=== PATIENT | male | born 1970 | race African-American/Black ===

== ENCOUNTER 2020-01-14 09:37 | Emergency (ER) | payer SELFPAY ==
[~2020-01-14] VITALS: Ht 175.3 cm; Wt 93.0 kg
[2020-01-14 10:05] VITALS: BP 132/88
[2020-01-14] MEDS ORDERED: Bactrim-DS 1 tab ORAL ONE (10:30)
[2020-01-14] MEDS ORDERED: Lidocaine 1% MPF 10mg/ml 5ml INJ ONE (10:30)
[2020-01-14] MEDS ORDERED: LET 3ml Soln TOPIC ONE ×2 (10:30→13:30)
[2020-01-14] MEDS ORDERED: Tetanus/Diptheria/Pertussis IM ONE (11:15)
[2020-01-14 11:21] LABS: BASOPHILS % (AUTO) 1.6 % (0.0-2.0); HEMATOCRIT 46.7 % (42.0-52.0); HEMOGLOBIN 15.7 G/DL (14.2-18.0); MEAN CORPUSCULAR VOLUME 96 FL (80-99); MONOCYTES % (AUTO) 5.5 % (1.0-10.0); NEUTROPHILS % (AUTO) 51.9 % (45.0-75.0); PLATELET COUNT 212 K/UL (150-450); RED BLOOD COUNT 4.85 M/UL (4.70-6.10); RED CELL DISTRIBUTION WIDTH 11.1 % (11.6-14.8); WHITE BLOOD COUNT 5.9 K/UL (4.8-10.8)
[2020-01-14 11:34] LABS: ANION GAP 7 mmol/L (5-15); BLOOD UREA NITROGEN 10 mg/dL (7-18); CARBON DIOXIDE 27 MMOL/L (21-32); CHLORIDE 106 MMOL/L (98-107); CREATININE 1.1 MG/DL (0.55-1.30); POTASSIUM 5.1 MMOL/L (3.5-5.1); SODIUM 140 MMOL/L (136-145)
[2020-01-14 11:38] LABS: ALANINE AMINOTRANSFERASE 42 U/L (12-78); ALKALINE PHOSPHATASE 67 U/L (46-116); ASPARTATE AMINO TRANSFERASE 45 U/L (15-37); BILIRUBIN,TOTAL 0.5 MG/DL (0.2-1.0)
[2020-01-14 12:02] VITALS: BP 127/82
[2020-01-14 12:22] LABS: ALBUMIN 4.3 G/DL (3.4-5.0); ALBUMIN/GLOBULIN RATIO 1.1 (1.0-2.7)
--- NOTE | 2020-01-14 12:32 | Diagnostic Imaging Report ---
EXAM: X-RAY XRAY Leg Lower Tib Fib 2v R CLINICAL HISTORY: Leg pain. COMPARISON: None FINDINGS: Total of 2 views of the right tibia and fibula were obtained. Alignment is anatomic. In the distal tibia, there is a cortical to subcortical circumscribed sclerotic density suggestive of a nonossifying fibroma noted. In the proximal tibial metadiaphyseal region, there is some endosteal thickening along the medial margin of undetermined etiology. Question history of old trauma. Joint spaces are unremarkable. Surrounding soft tissue is normal. IMPRESSION: NO ACUTE FRACTURE OR MALALIGNMENT. SMALL CORTICAL TO SUBCORTICAL SCLEROTIC DENSITY IN THE DISTAL TIBIA SUGGESTIVE OF A NONOSSIFYING FIBROMA. APPARENT CORTICAL/ENDOSTEAL THICKENING IN THE PROXIMAL TIBIAL METADIAPHYSIS OF UNDETERMINED ETIOLOGY. QUESTION HISTORY OF OLD TRAUMA.
--- NOTE | 2020-01-14 14:40 | Emergency Room Report ---
History of Present Illness General Chief Complaint: Skin Rash/Abscess Source: Patient Present Illness HPI The patient was sent to the emergency department for evaluation of an infection of his right dominguez. He stopped Keflex after 10-day course 2 days ago. At that time the leg was quite swollen and red. The swelling has improved but there is an area of swelling anteriorly. His private physician sent him to the emergency department for possible surgical consultation. He reports that prior labs were normal. The patient is not been working for 2 weeks. He has been keeping his foot elevated as much as possible. He denies pain at this time. There are no recent fevers and chills. The patient reports that several years ago a heavy object hit his anterior leg. This resulted in an infection that was treated with antibiotics at that time. It took quite a while for that problem to resolve. In the interim there have been no infections or problems with the leg. Patient denies calf pain, edema at this time or shortness of breath, chest pain or hemoptysis. The patient does not know when his last tetanus shot was. He believes is greater than 10 years. No fevers, chills, sore throat, palpitations, nausea, vomiting, diarrhea, dysuria, abdominal pain, depression, anxiety, visual changes, dizziness, headache. 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 Patient History Past Medical History: see triage record Social History: Denies: smoking, alcohol use, drug use Social History Narrative cmv driver Reviewed Nursing Documentation: PMH: Agreed; PSxH: Agreed Nursing Documentation-PMH Past Medical History: No Stated History Review of Systems All Other Systems: negative except mentioned in HPI Physical Exam Vital Signs Date Time Temp Pulse Resp B/P (MAP) Pulse Ox O2 Delivery O2 Flow Rate FiO2 01/14/20 10:03 98.2 72 16 135/88 (104) 98 Room Air Sp02 EP Interpretation: reviewed, normal General Appearance: well appearing, no apparent distress, GCS 15 Head: normocephalic Eyes: bilateral eye normal inspection, bilateral eye PERRL ENT: moist mucus membranes Neck: supple Respiratory: lungs clear, normal breath sounds Cardiovascular #1: regular rate, rhythm, no edema Cardiovascular #2: 2+ radial (R) Gastrointestinal: normal inspection, normal bowel sounds, non tender, no mass, non-distended Musculoskeletal: back normal, normal range of motion, no calf tenderness, gait/ station normal Neurologic: alert, oriented x3, normal inspection Psychiatric: mood/affect normal Skin: warm/dry, other - 2 cm x 1 cm area of fluctuance anterior tibia mid area with surrounding resolving erythema and minimal desquamation. Procedures Incision and Drainage Incision and Drainage : Consent: Verbal Site: Right anterior tibia Blade Size: 11 I & D Procedure: betadine prep, sterile drapes applied, sterile dressing applied, gauze wick placed Wound Location: lower extremity Wound's Depth, Shape: superficial Wound Length (cm): 1 Anesthesia: 1% Lidocaine, other - LET Volume Anesthetic (ccs): 0 - 0.3 Splint Applied?: No Sling Applied?: No Patient Tolerated: Well Complications: None Progress After Betadine prep and drape local was infused after LET. A small incision was made and pus and fluid was expressed. The wound was irrigated with 20 mils of saline. A wick was placed. A dressing was applied. Medical Decision Making Diagnostic Impression: Primary Impression: Abscess Additional Impression: Cellulitis Qualified Codes: L03.115 - Cellulitis of right lower limb ER Course Patient presents with a fluctuant wound with surrounding resolving erythema right lower leg. Clinically this looks like an abscess with a resolving cellulitis after treatment with Keflex. Most likely this was a mixed infection with strep and staph in the strep is been treated however the staph is most likely methicillin resistant and resistant to Keflex. Incision and drainage is indicated. In addition laboratory is needed to determine whether the patient has significant involvement of bone. Also tib-fib x-ray ordered. Labs unremarkable. X-ray without bony involvement. See procedure notes. Discussed treatment plan with patient. Patient stable for outpatient observation and treatment. Laboratory Tests Test 01/14/20 11:10 White Blood Count 5.9 K/UL (4.8-10.8) Red Blood Count 4.85 M/UL (4.70-6.10) Hemoglobin 15.7 G/DL (14.2-18.0) Hematocrit 46.7 % (42.0-52.0) Mean Corpuscular Volume 96 FL (80-99) Mean Corpuscular Hemoglobin 32.4 PG (27.0-31.0) H Mean Corpuscular Hemoglobin Concent 33.7 G/DL (32.0-36.0) Red Cell Distribution Width 11.1 % (11.6-14.8) L Platelet Count 212 K/UL (150-450) Mean Platelet Volume 7.9 FL (6.5-10.1) Neutrophils (%) (Auto) 51.9 % (45.0-75.0) Lymphocytes (%) (Auto) 35.0 % (20.0-45.0) Monocytes (%) (Auto) 5.5 % (1.0-10.0) Eosinophils (%) (Auto) 6.0 % (0.0-3.0) H Basophils (%) (Auto) 1.6 % (0.0-2.0) Sodium Level 140 MMOL/L (136-145) Potassium Level 5.1 MMOL/L (3.5-5.1) Chloride Level 106 MMOL/L (98-107) Carbon Dioxide Level 27 MMOL/L (21-32) Anion Gap 7 mmol/L (5-15) Blood Urea Nitrogen 10 mg/dL (7-18) Creatinine 1.1 MG/DL (0.55-1.30) Estimated Glomerular Filtration Rate > 60 mL/min (>60) Glucose Level 80 MG/DL (74-106) Calcium Level 9.0 MG/DL (8.5-10.1) Total Bilirubin 0.5 MG/DL (0.2-1.0) Aspartate Amino Transferase (AST) 45 U/L (15-37) H Alanine Aminotransferase (ALT) 42 U/L (12-78) Alkaline Phosphatase 67 U/L (46-116) C-Reactive Protein, Quantitative < 0.4 mg/dL (0.00-0.90) Total Protein 8.2 G/DL (6.4-8.2) Albumin 4.3 G/DL (3.4-5.0) Globulin 3.9 g/dL Albumin/Globulin Ratio 1.1 (1.0-2.7) Other X-Ray Diagnostic Results Other X-Ray Diagnostic Results : X-Ray ordered: Right tib-fib # of Views/Limited Vs Complete: 2 View Indication: Other EP Interpretation: Yes Interpretation: no dislocation, no fractures, other - Soft tissue swelling without gas or bony involvement Impression: Other Electronically Signed by: Electronically signed by Mario Phelps MD Last Vital Signs Date Time Temp Pulse Resp B/P (MAP) Pulse Ox O2 Delivery O2 Flow Rate FiO2 01/14/20 14:55 98.3 77 16 133/84 100 Room Air Status: improved Disposition: HOME, SELF-CARE Condition: Improved Scripts Bacitracin (Bacitracin) 28.4 Gm Oint...g. 1 APPLIC TOPIC BID, #20 GM Prov: Mario Phelps MD 01/14/20 Trimethoprim/Sulfamethoxazole 160/800* (BACTRIM DS TABLET*) 1 Each Tablet 1 TAB ORAL Q12H, #14 TAB 0 Refills Prov: Mario Phelps MD 01/14/20 Referrals: NOT CHOSEN IPA/,REFERRING (PCP) Mario Phelps MD Jan 14, 2020 14:40
[2020-01-14] MEDS ORDERED: BACTRIM DS TAB1 EAC1 ORAL (14:42)
[2020-01-14] MEDS ORDERED: BACITRACIN15 GM TOPIC (14:42)
[2020-01-14 14:55] VITALS: BP 133/84
== END 2020-01-14 14:55 | disposition home or self-care (01) ==
LOC: EMR 12:10
DX: L02.415 Cutaneous abscess of right lower limb (principal); L03.115 Cellulitis of right lower limb; Z23 Encounter for immunization
CPT/HCPCS: 36415; 80053; 85025; 86140; 90471; 90715; 99283

== ENCOUNTER 2020-01-16 10:13 | Emergency (ER) | payer SELFPAY ==
[~2020-01-16] VITALS: Ht 175.3 cm; Wt 93.0 kg
[~2020-01-16 10:13] MED LIST: BACITRACIN15 GM TOPIC; BACTRIM DS TAB1 EAC1 ORAL
--- NOTE | 2020-01-16 10:30 | NUR ---
ED Nurse Note:pt. came for wound recheck on right lower leg, wound packing came out, pt. is ambulatory with steady gait
[2020-01-16 10:51] VITALS: BP 148/85
[2020-01-16 11:22] VITALS: BP 135/77
--- NOTE | 2020-01-16 11:22 | NUR ---
ED Nurse Note: Pt cleared by ERMD for discharge. DC instructions was given and explained to pt and verbalized understanding of teachings. All medical deviecs such as ID band removed. Pt is AAO x4, ambulatory and left with all personal belongings.
--- NOTE | 2020-01-16 11:24 | Emergency Room Report ---
History of Present Illness General Chief Complaint: Wound Recheck/Suture Removal Source: Patient Present Illness HPI Patient is a 49-year-old male presents for wound check. He had recent incision and drainage of abscess. States that drain had fallen out. He had been having improved swelling and decreased pain to the area. Denies any current complaints. Had been taking antibiotics. Denies any fever. Allergies: Coded Allergies: No Known Allergies (Unverified , 01/14/20) COVID-19 Screening Contact w/high risk pt: No Experienced COVID-19 symptoms?: No COVID-19 Testing performed ANIMAL SURGEON: No Patient History Past Medical History: see triage record Reviewed Nursing Documentation: PMH: Agreed; PSxH: Agreed Nursing Documentation-PMH Past Medical History: No Stated History Review of Systems All Other Systems: negative except mentioned in HPI Physical Exam Vital Signs Date Time Temp Pulse Resp B/P (MAP) Pulse Ox O2 Delivery O2 Flow Rate FiO2 01/16/20 10:16 97.5 74 17 148/85 (106) 99 Room Air General Appearance: well appearing, no apparent distress, alert, GCS 15 Head: normocephalic, atraumatic ENT: hearing grossly normal, normal voice Neck: full range of motion, supple Respiratory: no respiratory distress, speaking full sentences Musculoskeletal: no calf tenderness Neurologic: alert, motor strength/tone normal, 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 Medical Decision Making Diagnostic Impression: Primary Impression: Wound check, abscess ER Course Patient presented for wound check. Differential diagnosis include was not limited to abscess, cellulitis, among others. Patient appears to have improvement in his wound. He does not appear to be have any toxicity. Patient was advised to have wound recheck with his primary care physician within the next few days. He was advised to return if he had any worsening or recurrence of swelling. He is advised to continue his antibiotics. This medical record is generated with [employer] adult school teacher software. There may be some adult school teacher discrepancies related to use of this software Last Vital Signs Date Time Temp Pulse Resp B/P (MAP) Pulse Ox O2 Delivery O2 Flow Rate FiO2 01/16/20 10:51 97.5 17 148/85 99 Room Air 01/16/20 10:16 74 Status: improved Disposition: HOME, SELF-CARE Condition: Stable Patient Instructions: Wound Check Isaiah Delgado MD Jan 16, 2020 11:23
== END 2020-01-16 11:30 | disposition home or self-care (01) ==
LOC: EMR 10:45
DX: Z09 Encounter for follow-up examination after completed treatment for conditions other than malignant neoplasm (principal)
CPT/HCPCS: 99281